=== PATIENT | male | born 2000 | race Two or more races ===

== ENCOUNTER 2023-07-30 14:35 | Emergency (ER) | payer OTHER ==
[2023-07-30 14:49] VITALS: BP 117/69; PULSE 85; RESP 18; TEMP 98.4; BMI 25.6
[2023-07-30 16:28] LABS: BASO % 0.3 % (0-2.0); EOS % 0.9 % (0-4.5); HEMATOCRIT 37.1 % (35.4-49); HEMOGLOBIN 12.8 GM/dL (11.7-16.9); LYMPH % 10.5 % (8-40); MCH 30.1 pg (25.7-33.7); MCHC 34.4 g/dl (32.0-35.9); MEAN CELL VOLUME 87.4 fl (80-96); MEAN PLT VOLUME 7.1 fl (7.5-11.1); MONO % 11.9 % (3.8-10.2); NEUT % 76.4 % (42.8-82.8); PLATELET COUNT 360 10^3/uL (134-434); RBC 4.25 M/mm3 (4.00-5.60); RDW 13.2 % (11.9-15.9); WHITE BLOOD COUNT 13.9 K/mm3 (4.0-10.0)
[2023-07-30 16:33] LABS: EPI CELLS 3 /uL (0-25.1); HYALINE CASTS 1 /uL (0-3.1); URINE APPEARANCE CLEAR; URINE BACTERIA 250 /uL (0-1359); URINE BILIRUBIN 1+ (NEGATIVE); URINE COLOR DK YELLOW; URINE GLUCOSE (UA) NEGATIVE (NEGATIVE); URINE KETONE 2+ (NEGATIVE); URINE LEUK ESTERASE NEGATIVE (NEGATIVE); URINE NITRITE NEGATIVE (NEGATIVE); URINE PROTEIN 1+ (NEGATIVE); URINE RBC 12 /uL (0-23.9); URINE WBC 16 /uL (0-25.8)
[2023-07-30 16:52] LABS: POTASSIUM 3.8 mmol/L (3.5-5.1)
[2023-07-30 16:54] LABS: CALCIUM 8.3 mg/dL (8.5-10.1)
[2023-07-30 16:55] LABS: BLOOD UREA NITROGEN 4.7 mg/dL (7-18)
[2023-07-30 16:58] LABS: CREATININE 0.7 mg/dL (0.55-1.3)
[2023-07-30 16:59] LABS: BILIRUBIN,TOTAL 0.8 mg/dL (0.2-1); TOT PROT 7.5 g/dl (6.4-8.2)
[2023-07-30] MEDS ORDERED: ACETAMINOPHEN 1000 MG/100 ML BAG IVPB ONE (17:14)
[2023-07-30] MEDS ORDERED: SODIUM CHLORIDE 1,000 ML IV STA (17:14)
[2023-07-30] MEDS ORDERED: ACETAMINOPHEN INJECTION 100 ML IVPB ONE (17:16)
== END 2023-07-30 21:09 | disposition home or self-care (01) ==
LOC: JER 14:35
PROC: 3E033NZ Introduction of Analgesics, Hypnotics, Sedatives into Peripheral Vein, Percutaneous Approach (ICD-10-PCS; principal; 2023-07-30)
PROC: 3E0337Z Introduction of Electrolytic and Water Balance Substance into Peripheral Vein, Percutaneous Approach (ICD-10-PCS; 2023-07-30)
DX: M54.50 Low back pain, unspecified (principal); R10.33 Periumbilical pain; R05.9 Cough, unspecified; J18.9 Pneumonia, unspecified organism; B97.4 Respiratory syncytial virus as the cause of diseases classified elsewhere; Z20.822 Contact with and (suspected) exposure to COVID-19
CPT/HCPCS: 0241U-QW; 36415; 71046-TC-FY; 71275-TC; 74177-TC; 80053; 81003; 85025; 87086; 99285-25; Q9967